=== PATIENT | female | born 1980 | race Caucasian/White ===

== ENCOUNTER 2023-09-03 20:53 | Emergency (ER) | payer OTHER ==
[~2023-09-03] VITALS: Ht 165.1 cm; Wt 50.3 kg
[2023-09-03] MEDS ORDERED: CYCL10TA9 PO (21:33)
[2023-09-03] MEDS ORDERED: ONDA4TAB5 PO (21:33)
[2023-09-03] MEDS ORDERED: HYDR-3980 PO (21:33)
[2023-09-03 21:39] VITALS: BP 115/69; O2SAT 97
== END 2023-09-03 22:08 | disposition home or self-care (01) ==
LOC: ER 21:04
DX: S16.1XXA Strain of muscle, fascia and tendon at neck level, initial encounter (principal); M54.50 Low back pain, unspecified; Z79.899 Other long term (current) drug therapy; V49.9XXA Car occupant (driver) (passenger) injured in unspecified traffic accident, initial encounter; Y93.89 Activity, other specified; Y92.410 Unspecified street and highway as the place of occurrence of the external cause; Y99.8 Other external cause status
CPT/HCPCS: A4606; A4663